=== PATIENT | female | born 1960 | race Two or more races ===

== ENCOUNTER 2016-08-18 16:28 | Emergency (ER) | payer OTHER | END 2016-08-18 23:10 | disposition home or self-care (01) | LOC: ER 16:28 | DX: G43.909 Migraine, unspecified, not intractable, without status migrainosus (principal); I10 Essential (primary) hypertension; Z88.5 Allergy status to narcotic agent; Z88.8 Allergy status to other drugs, medicaments and biological substances | CPT/HCPCS: 96372; 99283; J1200; J1885; J2765 ==